=== PATIENT | male | born 1945 | race Caucasian/White ===

== ENCOUNTER → 2016-10-18 | Outpatient (CLI) | payer OTHER, MEDICARE ==
[~2016-10-18] MED LIST: ATEN-173 PO; ATOR-22 PO; BIMA0.01 OPB; FEXO1TAB49 PO; FLM4 PO; FLV1 PO; LEVO100T7 PO; MONT1TAB3 PO; MULT-513 PO; NUTR1CAP PO; OMEG10007 PO; OMEP20CA9 PO; OMEP40CA PO; OXYC1TAB3 PO; PRS5 PO; SPR25 PO; TEST5GEL TOP; TNR50 PO; [UNRECOGNIZED DRUG - CODE] INJ
[2016-10-18 12:23] LABS: BLOOD UREA NITROGEN 13 mg/dl (7-18); BUN/CREATININE RATIO 16.7 (10-20); CARBON DIOXIDE 26 mmol/L (21-32); CHLORIDE 101 mmol/L (98-107); CREATININE 0.77 mg/dl (0.60-1.40); GLUCOSE 117 mg/dl (70-99); SODIUM 135 mmol/L (136-145)
[2016-10-18 12:27] LABS: PROSTATE SPECIFIC ANTIGEN 0.989 ng/ml (0.000-4.000)
== END | disposition home or self-care (01) ==
LOC: C.LAB1850 10:19
PROVIDERS: ATTEND Internal Medicine Endocrinology, Diabetes & Metabolism
DX: C61 Malignant neoplasm of prostate (principal); E87.1 Hypo-osmolality and hyponatremia; D35.2 Benign neoplasm of pituitary gland; R55 Syncope and collapse

== ENCOUNTER → 2016-11-08 | Outpatient (CLI) | payer OTHER, MEDICARE ==
[2016-11-08 08:34] LABS: BASO % 0.6 %; BASO ABS # 0.02 K/uL (0-0.2); COMPLETE YES; EOS % 6.7 %; HEMATOCRIT 33.9 % (42-52); LYMPH % 26.7 %; LYMPH ABS # 0.95 K/uL (1.2-3.4); MEAN CELL VOLUME 91.1 fL (80-100); MEAN CORPUSCULAR HEMOGLOBIN 31.7 pg (25-34); MEAN CORPUSCULAR HGB CONC 34.8 g/dl (32-36); MEAN PLATELET VOLUME 8.8 fL (7.4-10.4); MONO % 11.2 %; NEUT % 54.8 %; PLATELET COUNT 200 K/uL (130-400); RED BLOOD COUNT 3.72 M/uL (4.7-6.1); WHITE BLOOD COUNT 3.56 K/uL (4.8-10.8)
[2016-11-08 08:59] LABS: ALB/GLOB RATIO 1.2 (0.9-2); ALKALINE PHOSPHATASE 54 U/L (45-117); ALT/SGPT 27 U/L (12-78); AST/SGOT 18 U/L (15-37); BLOOD UREA NITROGEN 15 mg/dl (7-18); BUN/CREATININE RATIO 19.5 (10-20); CARBON DIOXIDE 25 mmol/L (21-32); CHLORIDE 109 mmol/L (98-107); CHOLESTEROL 131 mg/dl (0-200); CHOLESTEROL/HDL RATIO 2.2; CREATININE 0.78 mg/dl (0.60-1.40); GLUCOSE 85 mg/dl (70-99); HDL CHOLESTEROL 59 mg/dl; LDL CHOLESTEROL CALCULATED 58 mg/dl; SODIUM 144 mmol/L (136-145); TRIGLYCERIDES 69 mg/dl (0-150); VERY LOW DENSITY LIPOPROT CALC 14 mg/dl
== END | disposition home or self-care (01) ==
LOC: C.LAB 07:59
PROVIDERS: ATTEND Internal Medicine Endocrinology, Diabetes & Metabolism
DX: E78.5 Hyperlipidemia, unspecified (principal); D64.9 Anemia, unspecified; E22.2 Syndrome of inappropriate secretion of antidiuretic hormone; D35.2 Benign neoplasm of pituitary gland; E03.8 Other specified hypothyroidism; Z87.09 Personal history of other diseases of the respiratory system

== ENCOUNTER → 2016-11-17 | Outpatient (CLI) | payer OTHER, MEDICARE ==
[2016-11-17 11:49] LABS: BLOOD UREA NITROGEN 13 mg/dl (7-18); BUN/CREATININE RATIO 17.1 (10-20); CALCIUM 9.4 mg/dl (8.5-10.1); CARBON DIOXIDE 25 mmol/L (21-32); CHLORIDE 103 mmol/L (98-107); CREATININE 0.78 mg/dl (0.60-1.40); GLUCOSE 91 mg/dl (70-99); POTASSIUM 4.1 mmol/L (3.5-5.1); SODIUM 136 mmol/L (136-145)
== END | disposition home or self-care (01) ==
LOC: C.LAB1850 10:26
PROVIDERS: ATTEND Internal Medicine Endocrinology, Diabetes & Metabolism
DX: D35.2 Benign neoplasm of pituitary gland (principal); E22.2 Syndrome of inappropriate secretion of antidiuretic hormone; E03.8 Other specified hypothyroidism; E23.0 Hypopituitarism

== ENCOUNTER → 2017-01-09 | Outpatient (CLI) | payer OTHER, MEDICARE | END | disposition home or self-care (01) | LOC: C.LAB1850 10:28 | PROVIDERS: ATTEND Internal Medicine | DX: Z11.59 Encounter for screening for other viral diseases (principal) ==

== ENCOUNTER → 2017-02-28 | Outpatient (CLI) | payer OTHER, MEDICARE ==
[~2017-02-28] MED LIST changes: -OXYC1TAB3 PO
[2017-02-28 09:55] LABS: GLUCOSE,FASTING 82 mg/dl (70-99); SODIUM 131 mmol/L (136-145)
[2017-03-02 18:16] LABS: ILGF1 Z SCORE MALE 0.1 SD (-2.0 - +2.0)
== END | disposition home or self-care (01) ==
LOC: C.LAB1850 08:56
PROVIDERS: ATTEND Internal Medicine Endocrinology, Diabetes & Metabolism
DX: E23.0 Hypopituitarism (principal)

== ENCOUNTER → 2017-04-20 | Day surgery (SDC) | payer OTHER, MEDICARE ==
[2017-04-12 13:15] VITALS: Ht 179.1 cm; Wt 72.7 kg
[~2017-04-20] VITALS: Ht 179.1 cm; Wt 72.7 kg
[~2017-04-20] MED LIST changes: +LIDOCAINE HCL 2% 2 ML VIAL (20MG/ML) ONE; +MIDAZOLAM HCL 1 MG/ML 2ML VIAL ONE; +PROPOFOL IV EMULSION 10 MG/ML 20 ML VIAL IV ONE; -TNR50 PO
--- NOTE | 2017-04-20 10:24 | Endo History and Physical ---
History & Physical Date of Service: Apr 20, 2017. Chief Complaint: SCREENING FOR COLON CANCER Referring Physician: DR. NEWMAN History of Present Illness 71 yo CM who presents for screening colonoscopy. Past Medical History Male Genitourinary Prob., Reflux, Cancer, High Cholesterol, Hypertension Past Surgical History Hx Cardiac Surgery: No Hx Internal Defibrillator: No Hx Pacemaker: No Hx Abdominal Surgery: No Hx of Implantable Prosthesis: No Hx Post-Op Nausea and Vomiting: No Hx Cancer Surgery: No Hx Thoracic Surgery: No Hx Orthopedic: No Hx Urinary Tract Surgery: Yes (PROSTATE BIOPSY X MULTIPLE-LOCAL) Family History Colon CA, Polyp Social History Smoking Status: Former Smoker Hx Substance Use: No Hx Alcohol Use: Yes (Wine 2-4 glasses per day) Allergies Coded Allergies: Cat Dander (Verified Allergy, Mild, RUNNY NOSE, 04/20/17) NO KNOWN DRUG ALLERGIES (Verified Allergy, Unknown, NONE, 04/20/17) Current Medications Reported Home Medications Medications Dose Route/Sig Max Daily Dose Days Date Category Dose Instructions Nutropin Aq Nuspin 10 (Somatropin) 10 Mg/2 Ml Inj 0.2 Mg INJ QAM 04/12/17 Reported Androgel Pump (Testosterone) 1.62 % Gel 40.5 Mg TOP DAILY 04/12/17 Reported 2 PUMPS QAM Tenormin (Atenolol) 25 Mg Tab 25 Mg PO PRN 04/12/17 Reported BP IF 150 RANGE-1-2 X A MONTH Finasteride 5 Mg Tab 5 Mg PO QAM 08/21/16 Reported Levothyroxine Sodium 100 Mcg Tab 100 Mcg PO QAM 08/21/16 Reported Spironolactone 25 Mg Tab 25 Mg PO QAM 07/25/15 Reported Kathryn Allergy (Fexofenadine Hcl) 180 Mg Tab 180 Mg PO QAM 14 07/25/15 Reported Prostate 2.4 (Nutritional Supplements) 1 Cap Cap 2 Mg PO QAM 07/25/15 Reported [place]-3 (Fish Oil) 1 Ea Cap 1 Cap PO QAM 07/25/15 Reported Mvi With Minerals (Multivitamins/Minerals) Tab 1 Tab PO QAM 07/25/15 Reported Prilosec (Omeprazole) 20 Mg Cap 20 Mg PO UD PRN 07/25/15 Reported BEFORE EVENING MEAL Prilosec (Omeprazole) 40 Mg Capcr 40 Mg PO HS 05/05/14 Reported Folic Acid 1 Mg Tab 1 Mg PO QAM 05/05/14 Reported Lipitor (Atorvastatin Calcium) 20 Mg Tab 20 Mg PO QAM 05/05/14 Reported Lumigan (Bimatoprost) 0.01 % Destiny 1 Drop OPB HS 04/20/14 Reported Singulair (Montelukast Sodium) 10 Mg Tab 10 Mg PO HS 04/20/14 Reported Flomax * (Tamsulosin HCl) 0.4 Mg Cap 0.4 Mg PO HS 05/20/11 Reported Vital Signs Weight (Kilograms): 72.73 Height (Feet): 5 Height (Inches): 10.5 Date Time Temp Pulse Resp B/P (MAP) Pulse Ox O2 Delivery O2 Flow Rate FiO2 04/20/17 09:47 36.5 84 20 176/95 (122) 95 Room Air Physical Exam General Appearance: WD/WN, no apparent distress Respiratory/Chest: Auscultation: breath sounds normal Cardiovascular: Heart Auscultation: RRR Abdomen: Bowel Sounds: normal Inspection & Palpation: soft, non-distended, no tenderness, guarding & rebound Assessment and Plan Assessment: 71 yo CM who presents for screening colonoscopy. Plan: Proceed with colonoscopy.
--- NOTE | 2017-04-20 11:13 | Discharge Instructions ---
Endoscopy Patient Instructions Date / Procedure(s) Performed Apr 20, 2017. Colonoscopy Allergy Information Coded Allergies: Cat Dander (Verified Allergy, Mild, RUNNY NOSE, 04/20/17) NO KNOWN DRUG ALLERGIES (Verified Allergy, Unknown, NONE, 04/20/17) Discharge Date / Findings Apr 20, 2017. Internal hemorrhoids Medication Instructions OK to resume all medications today as prescribed Reported Home Medications Medications Dose Route/Sig Max Daily Dose Days Date Category Dose Instructions Nutropin Aq Nuspin 10 (Somatropin) 10 Mg/2 Ml Inj 0.2 Mg INJ QAM 04/12/17 Reported Androgel Pump (Testosterone) 1.62 % Gel 40.5 Mg TOP DAILY 04/12/17 Reported 2 PUMPS QAM Tenormin (Atenolol) 25 Mg Tab 25 Mg PO PRN 04/12/17 Reported BP IF 150 RANGE-1-2 X A MONTH Finasteride 5 Mg Tab 5 Mg PO QAM 08/21/16 Reported Levothyroxine Sodium 100 Mcg Tab 100 Mcg PO QAM 08/21/16 Reported Spironolactone 25 Mg Tab 25 Mg PO QAM 07/25/15 Reported Kathryn Allergy (Fexofenadine Hcl) 180 Mg Tab 180 Mg PO QAM 14 07/25/15 Reported Prostate 2.4 (Nutritional Supplements) 1 Cap Cap 2 Mg PO QAM 07/25/15 Reported [place]-3 (Fish Oil) 1 Ea Cap 1 Cap PO QAM 07/25/15 Reported Mvi With Minerals (Multivitamins/Minerals) Tab 1 Tab PO QAM 07/25/15 Reported Prilosec (Omeprazole) 20 Mg Cap 20 Mg PO UD PRN 07/25/15 Reported BEFORE EVENING MEAL Prilosec (Omeprazole) 40 Mg Capcr 40 Mg PO HS 05/05/14 Reported Folic Acid 1 Mg Tab 1 Mg PO QAM 05/05/14 Reported Lipitor (Atorvastatin Calcium) 20 Mg Tab 20 Mg PO QAM 05/05/14 Reported Lumigan (Bimatoprost) 0.01 % Destiny 1 Drop OPB HS 04/20/14 Reported Singulair (Montelukast Sodium) 10 Mg Tab 10 Mg PO HS 04/20/14 Reported Flomax * (Tamsulosin HCl) 0.4 Mg Cap 0.4 Mg PO HS 05/20/11 Reported Provider Instructions Activity Restrictions - No exercising or heavy lifting for 24 hours. - Do not drink alcohol the day of the procedure. - Do not drive a car or operate machinery until the day after the procedure. - Do not make any important decisions or sign important papers in 24 hours after the procedure. Following Day: - Return to full activity which may include returning to work/school. Diet Start your diet with liquids and light foods (jello, soup, juice, toast). Then eat your usual diet if not nauseated. Treatment For Common After Affects For mild abdominal pain, bloating, or excessive gas: - Rest - Eat lightly - Lie on right side Follow-Up Information Follow-up with DR. NEWMAN as scheduled Anesthesia Information What You Should Know You have had a procedure that required some medicine to reduce anxiety and discomfort. This treatment is called moderate sedation. After receiving the treatment, you may be sleepy, but you will be able to breathe on your own. The effects of the treatment may last for several hours. Follow these instructions along with Activity/Diet recommendations noted above: * Do NOT do anything where dizziness or clumsiness would be dangerous. * Rest quietly at home today, then you can be up and about tomorrow. * Have a responsible person stay with you the rest of today. * You may have had an I.V. today. If so, you may take the dressing off later today. Recommendations Call your doctor if: * Trouble breathing * Continuous vomiting for more than 24 hours * Temperature above 101 degrees * Severe abdominal pain or bloating * Pain not relieved by pain medicine ordered * There is increased drainage or redness from any incision * A large amount of rectal bleeding greater than 2-3 tablespoons. (If you had a polyp/s removed or have hemorrhoids, a small amount of blood - from the rectum is to be expected.) * You have any unanswered questions or concerns. IN THE EVENT OF A SERIOUS EMERGENCY, GO TO THE NEAREST EMERGENCY ROOM Your discharge instructions were prepared by provider Woo Collier. Patient Instructions Signature Page Jose Beckman Patient (or Guardian) Signature/Date: I have read and understand the instructions given to me by my caregivers. Caregiver/RN/Doctor Signature/Date: The above-named patient and/or guardian has received patient instructions on this date. + Original Patient Signature Page (only) stays with chart. Please make copy for patient.
--- NOTE | 2017-04-20 11:29 | Anesthesiology Progress Note ---
Anesthesia Post Op Note Date & Time Apr 20, 2017 at 11:29 Vital Signs Pain Intensity: 0 Vital Signs Past 12 Hours Date Time Temp Pulse Resp B/P (MAP) Pulse Ox O2 Delivery O2 Flow Rate FiO2 04/20/17 11:13 82 20 132/77 (95) 95 Room Air 04/20/17 09:47 36.5 84 20 176/95 (122) 95 Room Air Notes Mental Status: alert / awake / arousable, participated in evaluation Pt Amnestic to Procedure: Yes Nausea / Vomiting: adequately controlled Pain: adequately controlled Airway Patency, RR, SpO2: stable & adequate BP & HR: stable & adequate Hydration State: stable & adequate Anesthetic Complications: no major complications apparent
--- NOTE | 2017-04-20 11:46 | GI REPORT ---
Procedure Date: 04/20/2017 10:39 AM Procedure: Colonoscopy Indications: Screening for colorectal malignant neoplasm Medicines: Monitored Anesthesia Care Complications: No immediate complications. Estimated Blood Loss: Estimated blood loss: none. Procedure: Pre-Anesthesia Assessment: - Prior to the procedure, a History and Physical was performed, and patient medications and allergies were reviewed. The patient's tolerance of previous anesthesia was also reviewed. The risks and benefits of the procedure and the sedation options and risks were discussed with the patient. All questions were answered, and informed consent was obtained. Prior Anticoagulants: The patient has taken no previous anticoagulant or antiplatelet agents. ASA Grade Assessment: II - A patient with mild systemic disease. After reviewing the risks and benefits, the patient was deemed in satisfactory condition to undergo the procedure. After I obtained informed consent, the scope was passed under direct vision. Throughout the procedure, the patient's blood pressure, pulse, and oxygen saturations were monitored continuously. The scope was introduced through the anus and advanced to the terminal ileum. The colonoscopy was performed without difficulty. The patient tolerated the procedure well. The quality of the bowel preparation was good. The terminal ileum, ileocecal valve, appendiceal orifice, and rectum were photographed. Findings: Non-bleeding internal hemorrhoids were found during retroflexion. The hemorrhoids were small. The exam was otherwise without abnormality. Impression: - Non-bleeding internal hemorrhoids. - The examination was otherwise normal. - No specimens collected. Recommendation: - Resume previous diet. - Continue present medications. - Return to primary care physician as previously scheduled. - No repeat colonoscopy due to age and the absence of advanced adenomas. Woo Collier, DO 04/20/2017 11:45:48 AM This report has been signed electronically. Note Initiated On: 04/20/2017 10:39 AM I attest to the content of the Intraoperative Record and orders documented therein, exceptions below
[2017-04-20 12:00] VITALS: BP 153/92; PULSE 78; O2SAT 94
== END | disposition home or self-care (01) ==
LOC: C.GI 09:19
PROVIDERS: ATTEND Internal Medicine
DX: Z12.11 Encounter for screening for malignant neoplasm of colon (principal); K64.8 Other hemorrhoids; K21.9 Gastro-esophageal reflux disease without esophagitis; E78.00 Pure hypercholesterolemia, unspecified; I10 Essential (primary) hypertension; Z80.0 Family history of malignant neoplasm of digestive organs

== ENCOUNTER → 2017-05-17 | Outpatient (CLI) | payer OTHER, MEDICARE ==
[~2017-05-17] MED LIST changes: -LIDOCAINE HCL 2% 2 ML VIAL (20MG/ML) ONE; -MIDAZOLAM HCL 1 MG/ML 2ML VIAL ONE; -PROPOFOL IV EMULSION 10 MG/ML 20 ML VIAL IV ONE
== END | disposition home or self-care (01) ==
LOC: C.LAB1850 10:42
PROVIDERS: ATTEND Urology
DX: C61 Malignant neoplasm of prostate (principal)

== ENCOUNTER → 2017-06-06 | Outpatient (CLI) | payer OTHER, MEDICARE ==
[2017-06-06 17:40] LABS: LYME DISEASE AB IGG POS (NEG); LYME DISEASE AB IGM EQUIVOCAL (NEG)
[2017-06-13 04:30] LABS: 18KDIGG BAND REACTIVE (NONREACTIVE); 23KDIGG BAND REACTIVE (NONREACTIVE); 23KDIGM BAND REACTIVE (NONREACTIVE); 28KDIGG BAND REACTIVE (NONREACTIVE); 30KDIGG BAND NONREACTIVE (NONREACTIVE); 39KDIGG BAND REACTIVE (NONREACTIVE); 39KDIGM BAND NONREACTIVE (NONREACTIVE); 41KDIGG BAND REACTIVE (NONREACTIVE); 41KDIGM BAND NONREACTIVE (NONREACTIVE); 45KDIGG BAND REACTIVE (NONREACTIVE); 58KDIGG BAND REACTIVE (NONREACTIVE); 66KDIGG BAND NONREACTIVE (NONREACTIVE); 93KDIGG BAND REACTIVE (NONREACTIVE)
== END | disposition home or self-care (01) ==
LOC: C.LAB1850 14:12
PROVIDERS: ATTEND Physician Assistant
DX: T14.8 Other injury of unspecified body region (principal); W57.XXXA Bitten or stung by nonvenomous insect and other nonvenomous arthropods, initial encounter

== ENCOUNTER → 2017-11-22 | Outpatient (CLI) | payer OTHER, MEDICARE ==
[2017-11-22 12:44] LABS: BASO % 0.7 %; BASO ABS # 0.02 K/uL (0-0.2); EOS % 5.4 %; EOS ABS # 0.16 K/uL (0-0.5); HEMATOCRIT 30.5 % (42-52); HEMOGLOBIN 11.3 g/dL (14.0-18.0); IG# 0.02 K/uL (0.00-0.02); LYMPH % 31.2 %; LYMPH ABS # 0.92 K/uL (1.2-3.4); MEAN CELL VOLUME 89.2 fL (80-100); MEAN PLATELET VOLUME 8.8 fL (7.4-10.4); MONO % 14.6 %; MONO ABS # 0.43 K/uL (0.11-0.59); NEUT % 47.4 %; PLATELET COUNT 184 K/uL (130-400); RED CELL DISTRIBUTION WIDTH SD 42.6 fL (36.4-46.3); WHITE BLOOD COUNT 2.95 K/uL (4.8-10.8)
[2017-11-22 12:57] LABS: ALBUMIN 4.1 gm/dl (3.4-5.0); ALT/SGPT 34 U/L (12-78); AST/SGOT 27 U/L (15-37); BLOOD UREA NITROGEN 14 mg/dl (7-18); CARBON DIOXIDE 23 mmol/L (21-32); CREATININE 0.79 mg/dl (0.60-1.40); GLUCOSE 93 mg/dl (70-99); POTASSIUM 4.3 mmol/L (3.5-5.1); SODIUM 121 mmol/L (136-145)
[2017-11-22 12:59] LABS: ALKALINE PHOSPHATASE 48 U/L (45-117); CHOLESTEROL 131 mg/dl (0-200); LDL CHOLESTEROL CALCULATED 56 mg/dl; TOTAL PROTEIN 7.1 gm/dl (6.4-8.2)
== END | disposition home or self-care (01) ==
LOC: C.LAB1850 10:28
PROVIDERS: ATTEND Internal Medicine
DX: N40.1 Benign prostatic hyperplasia with lower urinary tract symptoms (principal); E78.5 Hyperlipidemia, unspecified; D64.9 Anemia, unspecified; E87.1 Hypo-osmolality and hyponatremia; D35.2 Benign neoplasm of pituitary gland; E23.0 Hypopituitarism; E22.2 Syndrome of inappropriate secretion of antidiuretic hormone; E03.8 Other specified hypothyroidism

== ENCOUNTER → 2018-01-10 | Outpatient (CLI) | payer OTHER, MEDICARE ==
[2018-01-10 12:25] LABS: BLOOD UREA NITROGEN 17 mg/dl (7-18); CALCIUM 9.1 mg/dl (8.5-10.1); CARBON DIOXIDE 27 mmol/L (21-32); CREATININE 0.93 mg/dl (0.60-1.40); GLUCOSE 105 mg/dl (70-99); SODIUM 131 mmol/L (136-145)
== END | disposition home or self-care (01) ==
LOC: C.LAB1850 10:27
PROVIDERS: ATTEND Internal Medicine
DX: E87.1 Hypo-osmolality and hyponatremia (principal)

== ENCOUNTER → 2018-02-12 | Outpatient (CLI) | payer OTHER, MEDICARE ==
[2018-02-12 12:23] LABS: BASO % 0.7 %; BASO ABS # 0.02 K/uL (0-0.2); EOS % 6.8 %; EOS ABS # 0.19 K/uL (0-0.5); HEMATOCRIT 31.3 % (42-52); HEMOGLOBIN 11.3 g/dL (14.0-18.0); IG# 0.02 K/uL (0.00-0.02); LYMPH % 28.4 %; LYMPH ABS # 0.79 K/uL (1.2-3.4); MEAN CORPUSCULAR HEMOGLOBIN 32.8 pg (25-34); MEAN CORPUSCULAR HGB CONC 36.1 g/dl (32-36); MEAN PLATELET VOLUME 8.5 fL (7.4-10.4); MONO % 17.6 %; MONO ABS # 0.49 K/uL (0.11-0.59); NEUT % 45.8 %; NEUT ABS # 1.27 K/uL (1.4-6.5); PLATELET COUNT 167 K/uL (130-400); RED CELL DISTRIBUTION WIDTH CV 12.9 % (11.5-14.5); RED CELL DISTRIBUTION WIDTH SD 42.9 fL (36.4-46.3); WHITE BLOOD COUNT 2.78 K/uL (4.8-10.8)
[2018-02-12 12:55] LABS: BLOOD UREA NITROGEN 14 mg/dl (7-18); CALCIUM 8.9 mg/dl (8.5-10.1); CARBON DIOXIDE 27 mmol/L (21-32); CREATININE 0.81 mg/dl (0.60-1.40); GLUCOSE 93 mg/dl (70-99); POTASSIUM 4.1 mmol/L (3.5-5.1); SODIUM 130 mmol/L (136-145)
== END | disposition home or self-care (01) ==
LOC: C.LAB1850 10:47
PROVIDERS: ATTEND Internal Medicine Endocrinology, Diabetes & Metabolism
DX: E03.8 Other specified hypothyroidism (principal); D64.9 Anemia, unspecified